=== PATIENT | female | born 1950 | race Two or more races ===

== ENCOUNTER 2021-05-24 10:09 | Outpatient (CLI) | payer OTHER | END 2021-05-24 10:30 | disposition home or self-care (01) | LOC: RAD 10:09 | PROVIDERS: ATTEND Obstetrics & Gynecology | DX: N95.0 Postmenopausal bleeding (principal); R93.89 Abnormal findings on diagnostic imaging of other specified body structures; Z12.31 Encounter for screening mammogram for malignant neoplasm of breast; N60.11 Diffuse cystic mastopathy of right breast; N60.12 Diffuse cystic mastopathy of left breast | CPT/HCPCS: 72197 ==